=== PATIENT | female | born 1965 | race Two or more races ===

== ENCOUNTER 2018-03-07 13:31 | Emergency (ER) | payer MEDICAID ==
[~2018-03-07] VITALS: Ht 162.6 cm; Wt 79.5 kg
[2018-03-07] MEDS ORDERED: DIPHENHYDRAMINE 50 MG/ML, 1ML ONE (16:54)
[2018-03-07] MEDS ORDERED: METOCLOPRAMIDE 5 MG/ML, 2ML ONE (16:54)
[2018-03-07] MEDS ORDERED: ACETAMINOPHEN 500 MG TABLET ONE (16:54)
--- NOTE | 2018-03-07 16:57 | NUR ---
BREAK RN FOR PRIMARY RN MOIZ. PT IN CT AT THIS TIME. TO START IV AND MEDICATE PT UPON RETURN.
[2018-03-07] MEDS ORDERED: ACETAMINOPHEN 500 MG TABLET PO ONE (17:00)
[2018-03-07] MEDS ORDERED: METOCLOPRAMIDE 5 MG/ML, 2ML IVPush ONE (17:00)
[2018-03-07] MEDS ORDERED: SODIUM CHLORIDE FLUSH 10ML SYR IVF ONE (17:00)
[2018-03-07] MEDS ORDERED: DIPHENHYDRAMINE 50 MG/ML, 1ML IVPush ONE (17:00)
--- NOTE | 2018-03-07 17:17 | NUR ---
PT BACK FROM CT, TO START IV AND MEDICATE PT PER ORDER FOR 9/10 PAIN. 52 Y/O F PRESENTS "HEADACHE FOR 2.5 DAYS, GETTING WAY WORSE, SENSITIVE TO LIGHT." DENIES ANY N/V, VISUAL CHANGES OR DIFFICULTY, OR SLURRED SPEACH. NEURO AND CMS INTACT. ASSESSMENT COMPLETED. CONT PULSE OX, BP MONITORS APPLIED. VSS. CALL LIGHT IN REACH. FALL PRECAUTIONS IN PLACE. SIDE RAILS UPX2. SIGNIFICANT OTHER AT BEDSIDE. A&OX4
--- NOTE | 2018-03-07 17:44 | NUR ---
DR. ALEX AT BEDSIDE FOR EVALUATION, DISCUSSING CT AND POC.
--- NOTE | 2018-03-07 17:57 | NUR ---
REPORT AND CARE BACK TO PRIMARY RN MOIZ AT THIS TIME
[2018-03-07] MEDS ORDERED: KETOROLAC 30 MG/1 ML ONE (18:00)
[2018-03-07 18:09] VITALS: BP 133/80
[2018-03-07] MEDS ORDERED: DEXAMETHASONE 4 MG/ML, 5ML ONE (18:14)
[2018-03-07] MEDS ORDERED: DEXAMETHASONE 4 MG/ML, 1ML IVPush ONE (18:30)
[2018-03-07] MEDS ORDERED: KETOROLAC 30 MG/1 ML IVPush ONE (19:00)
== END 2018-03-07 18:38 | disposition home or self-care (01) ==
LOC: ED 18:16
DX: G43.C0 Periodic headache syndromes in child or adult, not intractable (principal)
CPT/HCPCS: 70450; 96374; 96375; 99284; J1100; J1200; J1885; J2765